=== PATIENT | female | born 1960 | race Caucasian/White ===

== ENCOUNTER 2016-10-22 20:46 | Inpatient (IN) | payer BC, MEDICARE ==
[~2016-10-22] VITALS: Ht 165.1 cm; Wt 66.1 kg
[2016-10-22] MEDS ORDERED: VANCOMYCIN 1,250 MG in SODIUM CHLORIDE 0.9% 250 ML IV ONE (22:40)
[2016-10-22] MEDS ORDERED: MAG HYDROX 30 ML UDC PO PRN (23:25)
[2016-10-22] MEDS ORDERED: MORPHINE 2 MG/ML SYR IV PRN (23:25)
[2016-10-22] MEDS ORDERED: BISACODYL EC 5 MG TAB PO PRN (23:25)
[2016-10-22] MEDS ORDERED: PHARMACY TO DOSE VANCOMYCIN IV SCH (23:25)
[2016-10-22] MEDS ORDERED: ALU/MAG/SIM 30 ML UDC PO PRN (23:25)
[2016-10-22] MEDS ORDERED: BISACODYL 10 MG SUPP RECTAL PRN (23:25)
[2016-10-22] MEDS ORDERED: TEMAZEPAM 15 MG CAP PO PRN (23:25)
[2016-10-22] MEDS ORDERED: SALINE FLUSH 10 ML FLUSH PRN (23:25)
[2016-10-23 01:44] VITALS: BP_SYST 130; BP_SYST 132; RESP 18; TEMP 98.8
[2016-10-23 01:46] VITALS: BMI 24.3
[2016-10-23] MEDS: PIPERACIL/TAZO 3.375GM/50ML 50 ML IV SCH ×3 (03:05→16:06)
[2016-10-23 03:16] VITALS: BP_SYST 123; RESP 18; TEMP 98.5
[2016-10-23] MEDS: SODIUM CHLORIDE 0.9% FLUSH BAG 500 ML IV SCH (04:50)
[2016-10-23 08:28] VITALS: BP_SYST 117; RESP 18; TEMP 98.4
[2016-10-23] MEDS ORDERED: KCL CR 20 MEQ TAB PO ONE (08:50)
[2016-10-23] MEDS: SALINE FLUSH 10 ML FLUSH SCH ×2 (09:00→20:00)
[2016-10-23] MEDS ORDERED: MISSING DOSE XX ONE (09:15)
[2016-10-23 10:35] VITALS: BP_SYST 101; RESP 18; TEMP 98.2
[2016-10-23] MEDS ORDERED: LORTAB 7.5/325 ELIX 15 ML UDC PO PRN (11:00)
[2016-10-23] MEDS ORDERED: PROCHLORPERAZINE 5 MG TAB PO PRN (11:00)
[2016-10-23] MEDS: VANCOMYCIN 1,250 MG in SODIUM CHLORIDE 0.9% 250 ML IV SCH ×2 (11:02→23:14)
[2016-10-23 11:04] VITALS: Ht 165.1 cm; Wt 66.1 kg
[2016-10-23] MEDS: DEXAMETHASONE 4 MG TAB PO SCH (11:38)
[2016-10-23] MEDS: LEVOTHYROXINE 0.05 MG TAB PO SCH (11:38)
[2016-10-23] MEDS: MIDODRINE 10 MG TAB PO SCH ×3 (11:38→20:51)
[2016-10-23] MEDS: CREON 12000 UNIT PO SCH ×2 (11:38→16:11)
[2016-10-23] MEDS: ESCITALOPRAM 10 MG TAB PO SCH (11:38)
[2016-10-23] MEDS: SACCHA BOULARDII 250MG CAP PO SCH ×2 (16:09→20:51)
[2016-10-23] MEDS: KCL CR 10 MEQ CAP PO SCH ×2 (16:10→20:51)
[2016-10-23 19:55] VITALS: BP_SYST 111; RESP 20; TEMP 97.7
[2016-10-23] MEDS: OLANZAPINE 2.5 MG TAB PO SCH (20:51)
[2016-10-23] MEDS: LORAZEPAM 0.5 MG TAB PO PRN (20:53)
[2016-10-23 23:07] VITALS: BP_SYST 102; RESP 16; TEMP 97.7
[2016-10-24] MEDS: PIPERACIL/TAZO 3.375GM/50ML 50 ML IV SCH ×4 (01:21→23:49)
[2016-10-24] MEDS: SODIUM CHLORIDE 0.9% FLUSH BAG 500 ML IV SCH (05:14)
[2016-10-24 07:08] VITALS: BP_SYST 105; RESP 18; TEMP 97.3
[2016-10-24] MEDS: SALINE FLUSH 10 ML FLUSH SCH ×2 (08:00→21:12)
[2016-10-24] MEDS: CREON 12000 UNIT PO SCH ×3 (09:02→16:26)
[2016-10-24] MEDS: ESCITALOPRAM 10 MG TAB PO SCH (09:03)
[2016-10-24] MEDS: SACCHA BOULARDII 250MG CAP PO SCH ×3 (09:03→21:11)
[2016-10-24] MEDS: DEXAMETHASONE 4 MG TAB PO SCH (09:03)
[2016-10-24] MEDS: LEVOTHYROXINE 0.05 MG TAB PO SCH (09:03)
[2016-10-24] MEDS: KCL CR 10 MEQ CAP PO SCH ×3 (09:04→21:11)
[2016-10-24] MEDS: MIDODRINE 10 MG TAB PO SCH ×3 (09:05→21:12)
[2016-10-24 11:16] VITALS: BP_SYST 98; RESP 20; TEMP 98.3
[2016-10-24 15:31] VITALS: BP_SYST 106; RESP 16; TEMP 97.8
[2016-10-24 19:13] VITALS: BP_SYST 102; RESP 20; TEMP 98.1
[2016-10-24] MEDS: OLANZAPINE 2.5 MG TAB PO SCH (21:11)
[2016-10-24] MEDS: BACITRACIN OINT TOPICAL SCH (21:12)
[2016-10-24] MEDS: LORAZEPAM 0.5 MG TAB PO PRN (21:17)
[2016-10-24 22:37] VITALS: BP_SYST 116; RESP 20; TEMP 98
[2016-10-25 02:17] VITALS: BP_SYST 106; RESP 18; TEMP 97.9
[2016-10-25] MEDS: SODIUM CHLORIDE 0.9% FLUSH BAG 500 ML IV SCH (05:48)
[2016-10-25 08:02] VITALS: BP_SYST 113; RESP 18; TEMP 97.6
[2016-10-25] MEDS: PIPERACIL/TAZO 3.375GM/50ML 50 ML IV SCH (08:07)
[2016-10-25] MEDS: SALINE FLUSH 10 ML FLUSH SCH (08:08)
[2016-10-25] MEDS: CREON 12000 UNIT PO SCH ×2 (08:08→12:00)
[2016-10-25] MEDS: ESCITALOPRAM 10 MG TAB PO SCH (08:09)
[2016-10-25] MEDS: DEXAMETHASONE 4 MG TAB PO SCH (08:09)
[2016-10-25] MEDS: SACCHA BOULARDII 250MG CAP PO SCH (08:09)
[2016-10-25] MEDS: KCL CR 10 MEQ CAP PO SCH (08:09)
[2016-10-25] MEDS: LEVOTHYROXINE 0.05 MG TAB PO SCH (08:10)
[2016-10-25] MEDS: MIDODRINE 10 MG TAB PO SCH (08:10)
[2016-10-25] MEDS: BACITRACIN OINT TOPICAL SCH (09:00)
[2016-10-25 11:29] VITALS: BP_SYST 110; RESP 18; TEMP 98.2
[2016-10-25 11:40] VITALS: BP_SYST 113; RESP 18; TEMP 97.6
== END 2016-10-25 14:13 | disposition home or self-care (01) | DRG 603 ==
LOC: ENRESERVDT → ENRESERVTM → ENRESERV → ER 20:46 → EMR 22:42 → ENPENDDIS 22:42 → 4NT 10-23 00:29
PROVIDERS: ADMIT Family Medicine; ATTEND Family Medicine
CPT/HCPCS: 80048; 82565; 83735; 84520; 85025; 87077; 87186; 94799; 96365; 99233; 99239